=== PATIENT | female | born 1940 | race Caucasian/White ===

== ENCOUNTER 2023-10-25 08:18 | Outpatient (CLI) | payer MEDICARE, OTHER, SELFPAY ==
--- NOTE | 2023-10-25 07:00 | DI.RAD_ITS ---
Exam(s) XR PAIN CLINIC LUMBAR SP 2V EXAM: XR PAIN CLINIC LUMBAR SP 2V CLINICAL HISTORY: Dx: Lumbar Radiculopathy TECHNIQUE: 2D and realtime digital imaging was performed. CONTRAST MATERIAL: Refer to procedure report. COMPARISON: No exams were available for comparison FINDINGS: Fluoroscopy was provided for Dr. Scruggs during the performance of a transforaminal epidural steroid injection. Please refer to the procedure report for complete details. Ka,r=11.5 mGy IMPRESSION: RADIATION DOSE DELIVERED: 0.0 0.0 0
[2023-10-25 08:30] VITALS: BP 139/80; PULSE 80; RESP 20; TEMP 36.4; O2SAT 99
--- NOTE | 2023-10-25 09:10 | PDOC.PAIN ---
Date of service: 10/25/23 Time of Service: 09:40 Pain Managment Procedure Note Procedure Note Procedure Note: Lumbar Transforaminal Epidural Steroid Injection ? Location: RIGHT L3 ? Pre-procedure Diagnosis: M54.17-Radiculopathy, lumbosacral region M54.16 Radiculopathy, lumbar region ? Post-procedure Diagnosis:? The same as above ? Sedation:? none ? Estimated blood loss:? less than 2 cc ? Surgeon:? 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 Procedure Detail:?? The procedure and potential risks were explained to the patient and informed written consent was obtained. The patient was escorted to the procedure room and placed in the prone position. Pillows were utilized for proper positioning and comfort. Time out was performed in the procedure room with nursing staff confirming the patient's identity, procedure to be performed, allergies, and any blood thinning or anti-platelet medications. The patient's lower back was prepped with ChloraPrep and draped in a sterile fashion. Sterile gloves were used, a face mask was worn, and new single dose vials of all medications were used with the top being swabbed with alcohol and given time to dry prior to withdrawal of medication. A right-sided oblique fluoroscopic view was obtained, with visualization of L3-4. Lidocaine 1% was used to anesthetize the skin. The tip of a 22-gauge, Quincke needle was advanced toward the 6 o'clock position of the superior pedicle at the target level.? It was advanced just under the pedicle to the neural foramen L3-4. Correct needle placement was confirmed through review of the fluoroscopy. Next, following negative aspiration, 1cc's of Omnipaque 300 contrast was injected under live fluoroscopy which showed good flow throughout the epidural space and no evidence of vascular flow or flow into adjacent compartments. Next, following negative aspiration, 15mg of preservative-free dexamethasone and 0.5ml of 0.5% bupivacaine was injected. The needle was gently removed.? ? The patient tolerated the procedure well.? Permanent images saved and recorded. Plan:? Follow up prn COMMENT: Some contrast entered disc space. Needle repositioned and procedure continued with problem,will order keflex 500mg QID x 5 days. CONSIDER REPEAT OR WITH DEPOMEDROL OR INTERLAMINAR DEPENDING ON HOW SHE DOES
[2023-10-25 09:23] VITALS: O2SAT 95
[2023-10-25 09:30] VITALS: O2SAT 95
[2023-10-25] MEDS: Omnipaque 240 MG/ML 50 ML BTL IJ (09:43)
[2023-10-25] MEDS: Bupivacaine 0.5% Pres-Free 10 ML VIAL IJ (09:44)
[2023-10-25] MEDS: Dexamethasone Sod. Phos./Pres-Free 10 MG/ML VIAL IJ (09:44)
[2023-10-25] MEDS: Nerve Block Tray 1 EACH MC (09:45)
== END 2023-10-25 08:19 | disposition home or self-care (01) ==
LOC: PC 08:19
PROVIDERS: PCP Orthopaedic Surgery; Visit Provider Anesthesiology Pain Medicine
DX: M54.50 Low back pain, unspecified (principal); M54.17 Radiculopathy, lumbosacral region; M54.16 Radiculopathy, lumbar region
CPT/HCPCS: 00123; 64483; 72100; J0665; J1100; Q9967